=== PATIENT | male | born 1990 | race Caucasian/White ===

== ENCOUNTER 2019-05-29 17:45 | Emergency (ER) | payer SELFPAY ==
[~2019-05-29] VITALS: Ht 188 cm; Wt 100.2 kg
[2019-05-29 17:56] VITALS: Ht 188 cm; Wt 100.2 kg
[2019-05-29 23:32] VITALS: BP 140/73
== END 2019-05-29 23:32 | disposition home or self-care (01) ==
LOC: ED 17:45
DX: S61.011A Laceration without foreign body of right thumb without damage to nail, initial encounter (principal); W26.0XXA Contact with knife, initial encounter; Y93.89 Activity, other specified; Y92.89 Other specified places as the place of occurrence of the external cause; Y99.0 Civilian activity done for income or pay
CPT/HCPCS: 90715; J2001; Q0092

== ENCOUNTER 2019-05-31 10:58 | Emergency (ER) | payer SELFPAY ==
[~2019-05-31] VITALS: Ht 188 cm; Wt 100.7 kg
[2019-05-31 11:09] VITALS: BP 141/87; Ht 188 cm; Wt 100.7 kg
== END 2019-05-31 11:48 | disposition home or self-care (01) ==
LOC: ED 10:58
DX: S61.411D Laceration without foreign body of right hand, subsequent encounter (principal); W26.0XXD Contact with knife, subsequent encounter

== ENCOUNTER 2019-06-12 16:27 | Emergency (ER) | payer SELFPAY ==
[~2019-06-12] VITALS: Ht 188 cm; Wt 101.6 kg
[2019-06-12 16:32] VITALS: Ht 188 cm; Wt 101.6 kg
[2019-06-12 17:57] VITALS: BP 125/71
== END 2019-06-12 17:57 | disposition home or self-care (01) ==
LOC: ED 16:27
DX: S61.011D Laceration without foreign body of right thumb without damage to nail, subsequent encounter (principal)